=== PATIENT | female | born 1970 | race Caucasian/White ===

== ENCOUNTER 2016-11-02 05:04 | Day surgery (SDC) | payer BC ==
[2016-11-01 10:33] VITALS: BMI 25.7
[2016-11-02] MEDS ORDERED: MIDAZOLAM HCL 2 MG/2 ML SINGLE DOSE VIAL ONE (08:26)
[2016-11-02] MEDS ORDERED: ceFAZolin SODIUM 1 GM VIAL IVPB ONE (09:32)
--- NOTE | 2016-11-02 09:34 | HP ---
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: No: Alzheimer's, CVA, Dementia, Migraine, Multiple Sclerosis, Peripheral Neuropathy, Parkinson's, Seizure, Syncope, TIA, Vertigo, Other Cardiovascular: No: AFIB, Aneurysm, Aortic Insufficiency, Aortic Stenosis, CAD, CHF, Deep Vein Thrombosis, HTN, Hyperlipdemia, MN, Mitral Insufficiency, Mitral Stenosis, Murmur, Pulmonary Hypertension, Other Pulmonary: No: Asthma, Bronchitis, Cancer, COPD, O2 Dependent, Pneumonia, Previously Intubated, Pulmonary Embolus, Pulmonary Fibrosis, Sleep Apnea, Other Gastrointestinal: No: Ascites, Cancer, Constipation, Crohn's Disease, Diverticulitis, Diverticulosis, Esophageal Varices, Gastritis, GERD, GI Bleed, Hemorrhoids, Hiatal Hernia, Inflamatory Bowel Disease, Irritable Bowel Disease, Pancreatitis, Peptic Ulcer Disease, Ulcerative Colitis, Other Hepatobiliary: No: Cirrhosis, Cholelithiasis, Cholecystitis, Choledocholithiasis , Hepatitis A, Hepatitis B, Hepatitis C, Other Renal/: No: Renal Failure, Renal Inusuff, BPH, Cancer, Hematuria, Hemodialysis , Neurogenic Bladder, Renal Calculi, UTI, Other Reproductive: No: Ectopic , Endometriosis, Fibroids, PID, Polycystic Ovary Syndrome, Postmenopausal, Other ...Para: 3 (C/S x 1, x 1) ...Term: 3 Heme/Onc: No: Anemia, B12 Deficiency, Bleeding Disorder, Cancer, Current Chemotherapy, Current Radiation Therapy, Hemochromatosis, Hypercoaguable State, Myeloproliferative Synd, Sickle Cell Disease, Sickle Cell Trait, Thrombocytopenia, Other Infectious Disease: No: AIDS, C-Diff, Herpes Zoster, HIV, MRSA, STD's, Tuberculosis, VREF, Other Psych: Yes: Anxiety, Depression Musculoskeletal: No: Bursitis, Chronic low back pain, Hemiparesis, Hemiplegia, Osteoarthritis, Paraplegia, Other Rheumatology: No: Fibromyalgia, Gout, Lupus, Rheumatoid Arthritis, Sarcoidosis, Vasculitis, Other ENT: No: Allergic Rhinitis, Sinusitis, Other Endocrine: No: [place]'s Disease, [place]'s Disease, Diabetes Insipidus, Diabetes Mellitus, Hyperparathyroidism, Hyperthyroidism, Hypothyroidism, Osteopenia, SIADH, Other Dermatology: No: Basal Cell, Cellulitis, Eczema, Melanoma, Psoriasis, Squamous Cell, Other - Past Surgical History Past Surgical History: Yes: (x2) Hx Myomectomy: No Hx Transabdominal Cerclage: No Additional Surgical History: Endomatrial ablation, D&C, hysteroscopy - Smoking History Smoking history: Never smoked - Alcohol/Substance Use Hx Alcohol Use: No History of Substance Use: reports: None - Social History Usual Living Arrangement: Yes: With Spouse ADL: Independent History of Recent Travel: No Home Medications - Allergies Allergies/Adverse Reactions: Allergies Allergy/AdvReac Type Severity Reaction Status Date / Time control pill (unsure Allergy Hives Uncoded 11/01/16 10:36 of name) EGGPLANT Allergy Rash Uncoded 11/02/16 07:27 - Home Medications Home Medications: Ambulatory Orders Bupropion HCl [Bupropion HCl Sr] 150 mg PO DAILY 11/01/16 Family Disease History - Family Disease History Family History: Denies Review of Systems Findings/Remarks: Well appearing - Review of Systems Constitutional: reports: No Symptoms Eyes: reports: No Symptoms HENT: reports: No Symptoms Neck: reports: No Symptoms Cardiovascular: reports: No Symptoms Respiratory: reports: No Symptoms Gastrointestinal: reports: No Symptoms Genitourinary: reports: No Symptoms Breasts: reports: No Symptoms Reported Musculoskeletal: reports: No Symptoms Integumentary: reports: No Symptoms Neurological: reports: No Symptoms Endocrine: reports: No Symptoms Hematology/Lymphatic: reports: No Symptoms Psychiatric: reports: No Symptoms Pain Intensity: 0 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: Vital Signs Temperature 98.0 F 11/02/16 07:29 Pulse Rate 78 11/02/16 07:29 Respiratory Rate 18 11/02/16 07:29 Blood Pressure 138/88 11/02/16 07:29 O2 Sat by Pulse Oximetry (%) 99 11/02/16 07:30 Constitutional: Yes: Well Nourished, No Distress, Calm Eyes: Yes: WNL, Conjunctiva Clear, EOM Intact HENT: Yes: WNL, Atraumatic, Normocephalic Neck: Yes: WNL, Supple, Trachea Midline Cardiovascular: Yes: WNL, Regular Rate and Rhythm Respiratory: Yes: WNL, Regular, CTA Bilaterally Gastrointestinal: Yes: WNL, Normal Bowel Sounds, Soft ...Rectal Exam: Yes: Deferred Renal/: Yes: WNL Pelvis: Yes: WNL External Genitalia: Yes: Normal Internal Exam Deferred: No Vaginal Exam: Yes: Normal Cervix: Yes: Normal Uterus: Yes: Normal Adnexa: Normal: Left, Right Musculoskeletal: Yes: WNL Extremities: Yes: WNL Edema: No Integumentary: Yes: WNL Neurological: Yes: WNL, Alert, Oriented ...Motor Strength: WNL Psychiatric: Yes: WNL, Alert, Oriented Imaging - Results Ultrasound: Report Reviewed Assessment/Plan 46yo P3 with menometrorrhagia and pelvic pain admitted for laparoscopic hysterectomy, cystoscopy. We had a long discussion re: risks, benefits, alternatives of surgery were discussed. We reviewed the risks of infection, perforation, bleeding, injury to uterus, bladder, ureters, bowel, etc. We discussed the potential need for open surgery and/or additional surgery to repair any injuries at the same time and/or in the future. The pt verbalized her understanding and requested to proceed.
[2016-11-02] MEDS ORDERED: CEFAZOLIN 2 GM in DEXTROSE 5%-WATER - 100 ML IVPB ONE (09:35)
[2016-11-02] MEDS ORDERED: PROMETHAZINE HCL 25 MG/1 ML VIAL IVPUSH PRN (10:22)
[2016-11-02] MEDS ORDERED: ONDANSETRON 4 MG/2 ML VIAL IVPUSH PRN (10:22)
[2016-11-02] MEDS ORDERED: HYDROmorphone HCL CARPU-JECT 1 MG/1 ML DISP.SYRIN IVPUSH PRN (10:22)
[2016-11-02] MEDS ORDERED: DEXAMETHASONE SOD PHOSPHATE 4 MG/1 ML VIAL ONE (10:43)
[2016-11-02] MEDS ORDERED: METHYLENE BLUE 1% 10 MG/1 ML VIAL IVPUSH ONE (11:45)
[2016-11-02] MEDS ORDERED: BUPIVACAINE HCL/PF 0.5% (5MG/ML) 10 ML VIAL ONE (11:57)
[2016-11-02] MEDS ORDERED: NEOSTIGMINE METHYLSULFATE 0.5 MG/ML - 10 ML MDV ONE (11:59)
[2016-11-02] MEDS ORDERED: GLYCOPYRROLATE 0.2 MG/1 ML VIAL ONE (11:59)
[2016-11-02] MEDS ORDERED: BUPIVACAINE HCL/PF 0.5% (5MG/ML) 10 ML VIAL IJ ONE (12:17)
--- NOTE | 2016-11-02 12:35 | OP ---
Operative Note - Note: Operative Date: 11/02/16 Pre-Operative Diagnosis: Menometrorrhagia Operation: LAVH, bilateral salpingectomy, cystoscopy Findings: Small retroverted uterus. Normal ovaries and fallopian tubes. 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 Post-Operative Diagnosis: Same as Pre-op Surgeon: Narciso Interiano Dental Scheduling Coordinator: Marianne Rios Anesthesiologist/RELATIONS MGR: Deven Obando Anesthesia: General Specimens Removed: Uterus, cervix, b/l fallopian tubes. Estimated Blood Loss (mls): 50 Drains & Tubes with Location: Gross Cath Drains, Volume Out (mls): 100 Blood Volume Replaced (mls): 0 Fluid Volume Replaced (mls): 1,000 Operative Report Dictated: Yes
[2016-11-02] MEDS ORDERED: PROMETHAZINE HCL 25 MG/1 ML VIAL ONE (12:52)
[2016-11-02] MEDS ORDERED: METOCLOPRAMIDE HCL INJECTION 10 MG/2 ML VIAL ONE (14:00)
[2016-11-02] MEDS ORDERED: HYDROmorphone HCL CARPU-JECT 2 MG/1 ML DISP.SYRIN ONE (14:02)
[2016-11-02] MEDS ORDERED: oxyCODONE HCL 5 MG TABLET PO PRN ×2 (14:53→20:34)
[2016-11-02 15:37] VITALS: BP 143/73; PULSE 70; TEMP 97.9
--- NOTE | 2016-11-02 18:30 | PN ---
Progress Note (SOAP) - Subjective Chief Complaint: No complaints, feels well. History of Present Illness: POD#0 s/p LAVH, jared salpingectomy, cystoscopy - Current Medications Current Medications: Active Medications Enoxaparin Sodium (Lovenox -) 40 mg SQ DAILY KAROL Hydromorphone HCl (Dilaudid Injection -) 1 mg IVPUSH [id number] PRN PRN Reason: PAIN Stop: 11/05/16 10:23 Last Admin: 11/02/16 14:16 Dose: 1 mg Oxycodone HCl (Roxicodone -) 5 mg PO Q4H PRN PRN Reason: PAIN - Objective Vital Signs: Vital Signs Temperature 97.9 F 11/02/16 15:38 Pulse Rate 70 11/02/16 15:38 Respiratory Rate 18 11/02/16 15:38 Blood Pressure 143/73 11/02/16 15:38 O2 Sat by Pulse Oximetry (%) 100 11/02/16 15:38 Constitutional: Yes: Well Nourished, No Distress, Calm Eyes: Yes: WNL HENT: Yes: WNL, Atraumatic Neck: Yes: WNL, Supple Cardiovascular: Yes: WNL, Regular Rate and Rhythm Respiratory: Yes: WNL, Regular, CTA Bilaterally Gastrointestinal: Yes: WNL, Normal Bowel Sounds, Soft Genitourinary: Yes: WNL Musculoskeletal: Yes: WNL Extremities: Yes: WNL Peripheral Pulses WNL: No Edema: No Integumentary: Yes: WNL Wound/Incision: Yes: Well Approximated Neurological: Yes: WNL, Alert, Oriented Psychiatric: Yes: Alert, Oriented Assessment/Plan 46yo P3 doing well postop. Plan to discharge to home. Discharge instructions reviewed.
[2016-11-02] MEDS ORDERED: OXYCODONE/APAP 5/325MG COMBO TABLET PO PRN (20:07)
[2016-11-02] MEDS ORDERED: ACETAMINOPHEN 325 MG TABLET (FP) PO PRN (20:34)
--- NOTE | 2016-11-03 06:58 | OP ---
DATE OF OPERATION: 11/02/2016 PREOPERATIVE DIAGNOSIS: Menometrorrhagia. POSTOPERATIVE DIAGNOSIS: Menometrorrhagia. PROCEDURE: Laparoscopic-assisted vaginal hysterectomy, bilateral salpingectomy, cystoscopy. SURGEON: Narciso Nieves MD LAMP ASSEMBLER: Marianne Rios md ANESTHESIOLOGIST: Deven Obando MD ANESTHESIA: General. COMPLICATIONS: None. ESTIMATED BLOOD LOSS: 50 mL. URINE OUTPUT: 100 mL of clear urine at the end of the procedure. IV FLUIDS: 1000 mL of crystalloids. PATHOLOGY: Uterus with cervix and bilateral fallopian tubes. FINDINGS: Examination under anesthesia revealed a small retroverted uterus with no pelvic or adnexal masses. Laparoscopy revealed a small, slightly retroverted uterus with normal ovaries, normal fallopian tubes. Both fallopian tubes contained evidence of previous bilateral tubal ligation. There was mild scarring around the area of bladder consistent with previous history of sections. The visualized portion of the bowel, stomach, liver, gallbladder were within normal limits. The uterus appeared to be less than 250 mg. DESCRIPTION OF PROCEDURE: The patient was met preoperatively. Risks, benefits, and alternatives of surgery were discussed in detail. All questions were answered. The patient was then brought to the OR with the IV running. She was placed on the surgical table in the supine position. The general anesthesia was achieved without difficulty. The patient was then placed in a dorsal lithotomy position using adjustable Jairo stirrups. The patient was examined under anesthesia with the findings as described above. The patient was then prepped and draped in the usual sterile fashion. A Gross catheter was inserted with a sterile technique and left the drain to gravity. 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 The surgeons then proceeded with the laparoscopy. A 5-mm infraumbilical incision was made with a knife. A Veress needle was introduced through the umbilical incision, and a pneumoperitoneum was insufflated without complications. The Veress needle was then removed, and a 5-mm Visiport trocar was placed through the umbilical incision under direct visualization. Survey of the abdomen revealed a normal, slightly retroverted uterus with normal fallopian tubes. Both tubes contained evidence of bilateral tubal ligation. Both ovaries appeared to be normal. Visualized portion of the bowel and appendix were normal. A 5-mm incision was then made in the left lower quadrant, and a trocar was inserted without complications. Another 5-mm incision was made in the right lower quadrant, and a 5-mm trocar was inserted without complications. Another 5-mm trocar was placed in the left midquadrant under direct visualization without complications. The patient was then placed in a steep Trendelenburg position. The bowel was retracted cephalad. The uterus was grasped, and the bipolar LigaSure was utilized to transect the left mesosalpinx underneath the left fallopian tube then the left utero-ovarian ligament was transected then the left round ligament was transected. The bladder fold was created, and the bladder was gently dissected away from the cervix. The bladder was then retracted downwards. The posterior leaf of the broad ligament was also incised on the left side towards the cervix. The left uterine artery was skeletonized, cauterized, and transected with excellent hemostasis. The attention was then turned to the right side. The right fallopian tube was transected using LigaSure. The right utero-ovarian ligament and round ligament were also cauterized and transected using the LigaSure. The anterior leaf of the broad ligament was then incised toward the bladder, and the bladder reflection was created by generally dissecting the bladder away from the cervix. The posterior leaf of the broad ligament was also incised towards the cervix. The right uterine artery was also cauterized and transected with excellent hemostasis. Both ureters were visualized and traced along the pelvic sidewalls towards the bladder. The vaginal cuff was then incised posteriorly; however, the pneumoperitoneum at that point was lost, and visualization was limited. Therefore, the procedure was converted to vaginal hysterectomy. The cervix was grasped with 2 single-tooth tenaculums, and the cervix was incised anteriorly and posteriorly. The peritoneal cavity was entered posteriorly without complications. The vaginal mucosa was then dissected anteriorly. The bladder was also dissected anteriorly to expose the anterior cul-de-sac peritoneum. The peritoneum was entered sharply, and the finger was placed to assure that the bowel and bladder were safely tucked away. A LigaSure instrument was then used to cauterize and transect the uterosacral ligaments bilaterally. Once that was accomplished, the uterus was removed without complications and sent to Pathology. The peritoneum was closed vaginally without complications. The uterosacral ligaments were approximated in the midline using 0 Vicryl sutures. The vaginal cuff was closed using interrupted 0 Vicryl sutures with no complications and excellent hemostasis. The attention was then returned to the abdomen using laparoscopy. On laparoscopic examination, excellent hemostasis was noted. All of the pedicles and the surgical site exhibited excellent hemostasis. Copious irrigation was performed. Once the irrigation fluid was aspirated, good hemostasis was confirmed. The left fallopian tube was also excised and sent to Pathology. Once again, hemostasis was confirmed. The attention was then turned to the cystoscopy part of the surgery. Gross catheter was removed. The Methylene blue was injected by the anesthesiologist. A cystoscope was introduced into the bladder. Both ureteral orifices were visualized, and normal ureteral jets were noted bilaterally. Once that was completed, the cystoscope was removed, the bladder was emptied. The patient was returned to supine position. Sponge, lap, and needle counts were correct. The patient was transferred to the recovery room awake and in stable condition. Citlali GRIFFIN/[id number]
[2016-11-03] MEDS ORDERED: ENOXAPARIN NA (PORCINE) 40 MG/0.4 ML DISP.SYRIN SQ SCH (10:00)
--- NOTE | 2016-11-05 14:50 | PATH ---
Surgical Pathology Report Patient Name: ROSELINE PRIDE [facility]. Rec. #: [id number] /Age/Gender: 1970 (Age: 46) / F Account: [id number] Location: AMBULATORY SURG Taken: 11/02/2016 Received: 11/02/2016 Reported: 11/05/2016 Physicians: Narciso Interiano M.D. Specimen(s) Received UTERUS AND CERVIX, RIGHT AND LEFT FALLOPIAN TUBES Clinical History Menorrhagia and pelvic pain Final Diagnosis UTERUS, CERVIX, BILATERAL FALLOPIAN TUBES, TOTAL HYSTERECTOMY, BILATERAL SALPINGECTOMY: CERVIX: CHRONIC CERVICITIS WITH SQUAMOUS METAPLASIA. ENDOMETRIUM: DYSSYNCHRONOUS AND FOCALLY INACTIVE, WITH FOCAL AREA SUGGESTIVE OF ADHESION. MYOMETRIUM: WITHOUT SIGNIFICANT PATHOLOGIC CHANGE. UTERINE SEROSA: WITHOUT SIGNIFICANT PATHOLOGIC CHANGES. LEFT FALLOPIAN TUBE: WITHOUT SIGNIFICANT PATHOLOGIC CHANGES. RIGHT FALLOPIAN TUBE: FOCAL FIBRINOHEMORRHAGIC ADHESIONS. Electronically Signed Maninder Mo M.D. Gross Description Received in formalin, labeled "uterus, cervix, bilateral fallopian tubes" is a 95 g hysterectomy specimen including a uterus, attached cervix and an attached left fallopian tube. The right fallopian tube is separately received within the same container. The specimen measures 8.7 cm from superior to inferior, 6.3 cm from left to right and 4.0 cm from anterior to posterior. The serosa is pink-salcido and smooth. The attached cervix measures 3.5 cm in length and averages 3.0 cm in diameter. The ectocervix is pink-salcido, smooth and glistening. The endocervix is unremarkable. The endometrial cavity measures 3.5 cm in length and 1.2 cm from cornu to cornu. The endometrium is hyperemic and averages 0.1 cm in thickness. The myometrium is pink-salcido and averages 1.9 cm in thickness. No intramural nodules are identified. The attached left fimbriated fallopian tube measures 2 cm in length. The outer surface is mary-purple. Sectioning reveals a pinpoint lumen. The separately received right fimbriated fallopian tube measures 3 cm in length. The outer surface is mary-purple. Sectioning reveals a pinpoint lumen. Human Service Specialist sections are submitted in 10 cassettes as follows: 1-anterior cervix; 2-posterior cervix; 9-3-[id number] endomyometrium; 0-3-[id number] endomyometrium; 7-left fallopian tube fimbria; 8-cross sections of left fallopian tube; 9-right fallopian tube fimbria; 10-cross sections of right fallopian tube. 11/02/201611/02/2016
== END 2016-11-02 19:16 | disposition home or self-care (01) ==
LOC: JASUSAT 05:04 → JASU-SURG 05:04 → J6S 16:00 → JASUSAT 19:16
PROVIDERS: ATTEND Obstetrics & Gynecology
PROC: 0UTC7ZZ Resection of Cervix, Via Natural or Artificial Opening (ICD-10-PCS; 2016-11-02)
PROC: 0UT7FZZ Resection of Bilateral Fallopian Tubes, Via Natural or Artificial Opening With Percutaneous Endoscopic Assistance (ICD-10-PCS; 2016-11-02)
PROC: 0UT9FZZ Resection of Uterus, Via Natural or Artificial Opening With Percutaneous Endoscopic Assistance (ICD-10-PCS; principal; 2016-11-02 09:00)
DX: N92.1 Excessive and frequent menstruation with irregular cycle (principal)
CPT/HCPCS: 88307-TC; 94760